=== PATIENT | female | born 1985 | race Caucasian/White ===

== ENCOUNTER 2016-12-27 19:16 | Outpatient (CLI) | payer MEDICAID ==
[~2016-12-27] VITALS: Ht 157.5 cm; Wt 82.0 kg
[~2016-12-27 19:16] MED LIST: FERR-55 PO; PREN1TAB62 PO
[2016-12-27 19:55] VITALS: BP 139/82; PULSE 106; RESP 18; Ht 157.5 cm; Wt 82.0 kg
--- NOTE | 2016-12-27 21:18 | RADRPT ---
PROCEDURE: Obstetrical ultrasound for biophysical profile CLINICAL INDICATION: Biophysical profile. . TECHNIQUE: Obstetrical ultrasound of the uterus for biophysical profile. Transabdominal and transvaginal views are obtained. COMPARISON: 10/04/2016 FINDINGS: Single intrauterine gestation. Presentation: Cephalic. Placenta: Anterior. No evidence of placental abruption. No evidence of placenta previa. Cervix is closed measuring 2.1 cm as visualized transvaginally. breathing movement = 2/2 tone = 2/2 motion = 2/2 KALANI = 2/2 KALANI = 16.9 cm heart rate: 154 beats per minute IMPRESSION: Single intrauterine gestation. Biophysical profile 10/08 RPTAT: AADD .Danny Astudillo MD, MD Date Time Electronically viewed and signed by .Danny Astudillo MD, MD on 12/27/2016 21:17 .B/
[2016-12-27] MEDS ORDERED: LACTATED RINGER'S 1,000 ML IV SCH (21:40)
[2016-12-27 21:51] LABS: BASOPHILS % 0.3 % (0.0-2.0); EOSINOPHILS # 0.2 10^3/ul (0.0-0.5); EOSINOPHILS % 2.8 % (0.0-7.0); HEMATOCRIT 33.5 % (37.0-47.0); HEMOGLOBIN 11.5 g/dl (12.0-16.0); LYMPHOCYTES % 31.1 % (15.0-51.0); MEAN CORPUSCULAR HEMOGLOBIN 27.5 pg (29.0-33.0); MEAN CORPUSCULAR HGB CONC 34.3 g/dl (32.0-37.0); MEAN CORPUSCULAR VOLUME 80.1 fl (82.0-101.0); MEAN PLATELET VOLUME 10.3 fl (7.4-10.4); MONOCYTE # 0.5 10^3/ul (0.3-0.9); MONOCYTES % 7.9 % (0.0-11.0); NEUTROPHIL # 3.7 10^3/ul (1.6-7.5); NEUTROPHILS % 56.7 % (39.0-77.0); PLATELET COUNT 170 10^3/UL (140-415); RED BLOOD COUNT 4.18 10^6/ul (4.20-5.40); RED CELL DISTRIBUTION WIDTH 13.4 % (11.5-14.5); WHITE BLOOD COUNT 6.5 10^3/ul (4.8-10.8)
[2016-12-27 22:08] LABS: INR 0.94; PROTIME 12.6 Sec (12.2-14.2)
[2016-12-27 22:09] LABS: PARTIAL THROMBOPLASTIN TIME 25.8 Sec (25.0-35.0)
[2016-12-27 22:14] LABS: ALBUMIN 4.2 g/dl (3.3-4.9); ALBUMIN/GLOBULIN RATIO 1.35; BILIRUBIN,INDIRECT 0.1 mg/dl (0-1.1); BILIRUBIN,TOTAL 0.1 mg/dl (0.2-1.3); CREATININE 0.61 mg/dl (0.44-1.00); POTASSIUM 3.5 mmol/L (3.5-5.1); TOTAL PROTEIN 7.3 g/dl (6.1-8.1); URIC ACID 4.5 mg/dl (3.1-7.9)
[2016-12-27 22:32] LABS: ADD UMIC YES; UR ASCORBIC ACID NEGATIVE (NEGATIVE); UR BACTERIA FEW /HPF (NONE SEEN); UR BILIRUBIN (Dip) NEGATIVE (NEGATIVE); UR BLOOD (Dip) 1+ mg/dL (NEGATIVE); UR CLARITY SLIGHTLY CLOUDY (CLEAR); UR COLOR YELLOW (YELLOW); UR GLUCOSE (Dip) 1+ mg/dL (NEGATIVE); UR KETONES (Dip) NEGATIVE (NEGATIVE); UR LEUKOCYTE ESTERASE (Dip) TRACE Leu/ul (NEGATIVE); UR NITRITE (Dip) NEGATIVE (NEGATIVE); UR RBC 5 /HPF (0-5); UR SPECIFIC GRAVITY (Dip) 1.008 (1.003-1.030); UR SQUAMOUS EPITHELIAL CELL MODERATE /HPF (FEW); UR TOTAL PROTEIN (Dip) NEGATIVE (NEGATIVE); UR UROBILINOGEN (Dip) NEGATIVE (NEGATIVE)
--- NOTE | 2016-12-27 23:11 | PN ---
Triage Information Date/Time Reason for visit: Weeks of Gestation 33w 6d /Para Objective Vital Signs Date Time Temp Pulse Resp B/P Pulse Ox O2 Delivery O2 Flow Rate FiO2 12/27/16 19:55 98.6 106 18 139/82 Room Air Heart Rate Comments reactive Contractions: >10 Minutes Apart Exam FFN neg Results/Medications Result Diagram: 12/27/16213412/27/162134 Results 24 hrs Laboratory Tests Test 12/27/16 20:08 12/27/16 21:35 Urine Color YELLOW Urine Clarity SLIGHTLY CLOUDY A Urine pH 6.0 Urine Specific [place] 1.008 Urine Ketones NEGATIVE Urine Nitrite NEGATIVE Urine Bilirubin NEGATIVE Urine Urobilinogen NEGATIVE Urine Leukocyte Esterase TRACE A Urine Microscopic RBC 5 Urine Microscopic WBC 3 Urine Squamous Epithelial Cells MODERATE Urine Bacteria FEW A Urine Hemoglobin 1+ H Urine Glucose 1+ H Urine Total Protein NEGATIVE Fibronectin NEGATIVE White Blood Count 6.5 # Red Blood Count 4.18 L Hemoglobin 11.5 L Hematocrit 33.5 L Mean Corpuscular Volume 80.1 L Mean Corpuscular Hemoglobin 27.5 L Mean Corpuscular Hemoglobin Concent 34.3 Red Cell Distribution Width 13.4 Platelet Count 170 Mean Platelet Volume 10.3 # Neutrophils % 56.7 Lymphocytes % 31.1 Monocytes % 7.9 Eosinophils % 2.8 Basophils % 0.3 Nucleated Red Blood Cells % 0.0 Neutrophils # 3.7 Lymphocytes # 2.0 Monocytes # 0.5 Eosinophils # 0.2 Basophils # 0.0 Nucleated Red Blood Cells # 0.0 Prothrombin Time 12.6 Prothrombin Time Ratio 1.0 INR International Normalized Ratio 0.94 Activated Partial Thromboplast Time 25.8 Fibrinogen 431.0 # Sodium Level 140 Potassium Level 3.5 Chloride Level 106 Carbon Dioxide Level 22 Anion Gap 16 Blood Urea Nitrogen 8 Creatinine 0.61 Glucose Level 97 Uric Acid 4.5 Calcium Level 9.0 Total Bilirubin 0.1 L Direct Bilirubin 0.00 Indirect Bilirubin 0.1 Aspartate Amino Transf (AST/SGOT) 20 Alanine Aminotransferase (ALT/SGPT) 29 Alkaline Phosphatase 87 Total Protein 7.3 Albumin 4.2 Globulin 3.10 Albumin/Globulin Ratio 1.35 Medications Current Medications Lactated Ringer's (Lr) 1,000 ml @ 125 mls/hr Q8H IV Last administered on 12/27t 21:35; Admin Dose 125 MLS/HR; Start 12/27/16 at 21:40 Imaging Results CL 2.1cm Disposition: Discharge Assessment/Plan 31 y/o at 33w 6d with elevated BPs, normal labs and UCs, resolved with IVFs , no e/o ptl -discharge home with ptl/preeclampsia precautions -24 hour urine -f/u with OB RALF CISNEROS Dec 27, 2016 23:11
--- NOTE | 2016-12-28 00:36 | TRIAGE ---
OB Triage Datetime Report Generated by CPN: 12/28/2016 00:36 Datetime: 12/27/2016 23:00 Labor Evaluation Frequency: 0 Monitor Mode: External Heart Rate FHR Baseline Rate: 135 FHR Baseline Changes: No Baseline Change Variability: Moderate 6-25 bpm Accelerations: 15X15 Decelerations: None Category: Category I Datetime: 12/27/2016 22:00 Labor Evaluation Frequency: IRREGULAR Monitor Mode: External Duration (sec)2399: 60 Quality: Mild Pattern: Normal: <= 5 Contractions in 10 Minutes Resting Tone [place]: Relaxed Heart Rate FHR Baseline Rate: 135 FHR Baseline Changes: No Baseline Change Variability: Moderate 6-25 bpm Accelerations: 15X15 Decelerations: None Category: Category I Datetime: 12/27/2016 21:00 Labor Evaluation Frequency: IRREGULAR Monitor Mode: External Duration (sec)2399: 60 Quality: Mild Pattern: Normal: <= 5 Contractions in 10 Minutes Resting Tone [place]: Relaxed Heart Rate FHR Baseline Rate: 145 Monitor Mode: External US FHR Baseline Changes: No Baseline Change Variability: Moderate 6-25 bpm Accelerations: 15X15 Decelerations: None Category: Category I Datetime: 12/27/2016 20:29 EGA: 33.6 Time Provider Notified: 12/27/2016 21:00 Provider Notified: DR UAJE Datetime: 12/27/2016 20:07 Vaginal Exam Dilatation (cms): 0.5 Effacement (%): 0 Station: -3 Exam By: Jovi ARCINIEGA RN Vaginal Bleeding: None Cervix, Consistency: Firm Cervix, Position: Posterior Datetime: 12/27/2016 20:00 Labor Evaluation Frequency: IRREGULAR Monitor Mode: External Duration (sec)2399: 60-100 Quality: Mild Pattern: Normal: <= 5 Contractions in 10 Minutes Resting Tone [place]: Relaxed Heart Rate FHR Baseline Rate: 150 Monitor Mode: External US FHR Baseline Changes: No Baseline Change Variability: Moderate 6-25 bpm Accelerations: 15X15 Decelerations: None Category: Category I Datetime: 12/27/2016 19:31 Time of Arrival: 12/27/2016 19:05 Arrived By: Wheelchair Arrived From: Home Chief Complaint: ELEVATED BP'S SENT IN FROM THE OFICE Movement: Present Contractions: Denies/Absent Rupture of Membranes: Denies Vaginal Bleeding: None Vaginal Discharge: Denies Recent Sexual Intercouse: Denies Abdominal Trauma: Not Applicable Patient Complaints: None (Annotations: Data stored by CPN on behalf of user) Time Provider Notified: 12/27/2016 21:00 Provider Notified: DR CISNEROS Initial Plan: CALL TYLER DOE Maternal Assessment Level of Consciousness: Fully Conscious DTR's/Clonus: DTRs 2+; No Clonus Headache: Denies Blurred Vision: No Respiratory Effort: Unlabored; Regular Rhythm; Equal Expansion Breath Sounds, Left: Clear and Equal Breath Sounds, Right: Clear and Equal Nausea/Vomiting: Denies RUQ Epigastric Pain: Denies Lower Extremities Edema: Bilateral Lower Extremities Degree: 1+ Upper Extremities Edema: None Degree: None Facial Edema: None Temperature Route: Oral Fall Risk Assessment History of Falling: (0) No Secondary Diagnosis: (0) No Ambulatory Aid: (0) Bedrest/Nurse Assist IV Therapy: (0) No Gait: (0) Normal/Bedrest/Immobile Mental Status: (0) Oriented to Own Ability Fall Score: 0 Fall Risk Score Definition: No Risk: No action required Monitor Mode: External Monitor Mode: External US Pain Assessment Pain Scale: 0
== END 2016-12-27 23:17 | disposition home or self-care (01) ==
LOC: OBT 19:16 → L-D 19:18 → OBT 23:17
PROVIDERS: ATTEND Obstetrics & Gynecology
DX: O16.3 Unspecified maternal hypertension, third trimester (principal); Z3A.33 33 weeks gestation of pregnancy
CPT/HCPCS: 36415; 76817; 76818; 80053; 81001; 82731; 84560; 85025; 85384; 85610; 85730; 96360; 96361; J7120; Z7500; G0463

== ENCOUNTER 2016-12-29 10:25 | Inpatient (IN) | payer MEDICAID ==
[~2016-12-29] VITALS: Ht 157.5 cm; Wt 81.2 kg
[2016-12-29] MEDS ORDERED: CALC600T24 PO (10:40)
[2016-12-29] MEDS ORDERED: FOLI-49 PO (10:40)
[2016-12-29 10:41] VITALS: BP 135/90; PULSE 90; RESP 18; Ht 157.5 cm; Wt 81.2 kg
--- NOTE | 2016-12-29 11:58 | RADRPT ---
PROCEDURE: Obstetrical ultrasound for biophysical profile CLINICAL INDICATION: Biophysical profile. . TECHNIQUE: Obstetrical ultrasound of the uterus for biophysical profile. Transabdominal views are obtained. COMPARISON: 12/27/2016 FINDINGS: Single intrauterine gestation. Presentation: Cephalic. Placenta: Anterior. No evidence of placental abruption. No evidence of placenta previa. breathing movement = 2/2 tone = 2/2 motion = 2/2 KALANI = 2/2 KALANI = 11.2 cm heart rate: 135 beats per minute IMPRESSION: Single intrauterine gestation. Biophysical profile 10/08 RPTAT: AADD .Danny Astudillo MD, MD Date Time Electronically viewed and signed by .Danny Astudillo MD, on 12/29/2016 11:57 .B/
--- NOTE | 2016-12-29 12:35 | TRIAGE ---
OB Triage Datetime Report Generated by CPN: 12/29/2016 12:35 Datetime: 12/29/2016 10:38 Assessment Type: Triage Level of Consciousness: Fully Conscious DTR's/Clonus: DTRs 2+; No Clonus Headache: Denies Blurred Vision: No Respiratory Effort: Unlabored; Regular Rhythm; Equal Expansion Breath Sounds, Left: Clear and Equal Breath Sounds, Right: Clear and Equal Nausea/Vomiting: Denies RUQ Epigastric Pain: Denies Lower Extremities Edema: None Degree: None Upper Extremities Edema: None Degree: None Facial Edema: None History of Falling: (0) No Secondary Diagnosis: (0) No Ambulatory Aid: (0) Bedrest/Nurse Assist IV Therapy: (0) No Gait: (0) Normal/Bedrest/Immobile Mental Status: (0) Oriented to Own Ability Fall Score: 0 Fall Risk Score Definition: No Risk: No action required Datetime: 12/29/2016 10:31 Time of Arrival: 12/29/2016 10:21 EGA: 34.1 Arrived By: Ambulatory Arrived From: Home Chief Complaint: PT HERE WITH 24 URINE COLLECTION Movement: Present Contractions: Denies/Absent Rupture of Membranes: Denies Vaginal Bleeding: None Vaginal Discharge: Denies Recent Sexual Intercouse: Denies Abdominal Trauma: Not Applicable Patient Complaints: None Time Provider Notified: 12/29/2016 10:21 Provider Notified: SHAMSIAN Initial Plan: BPP/NST/PIH PANEL/ Datetime: 12/29/2016 10:28 Monitor Mode: External Monitor Mode: External US Datetime: 12/27/2016 23:04 Stage of : OB Triage
[2016-12-29] MEDS: BETAMET NA PHOS/AC(6 MG/ML) 5ML INJ IM SCH (13:13)
--- NOTE | 2016-12-29 16:51 | HP ---
Date/Time of Note Date/Time of Note DATE: 12/29/16 TIME: 16:50 OB - History Hx of Present Free Text/Dictation iup 34 weeks ho of HBP pt no symptoms : 5 Para: 2 Care: Good Care Ultrasounds: Normal mid trimester US Past Family/Social History * Past Medical, Surgical, Family and Obstetric Histories reviewed from chart. OB Admission Exam Vital Signs Vital Signs Vital Signs Date Time Temp Pulse Resp B/P Pulse Ox O2 Delivery O2 Flow Rate FiO2 12/29/16 10:41 98.9 90 18 135/90 98 Room Air Physical Exam HEENT: WNL Lungs: Clear Abdomen: WNL Extremities: Normal Reflexes: Normal Cervical Dilatation: None Last 72 hours Lab Results CBC & BMP 12/29/16 11:00 Liver Function Test 12/29/16 11:00 Alanine Aminotransferase (ALT/SGPT) 29 Albumin 4.1 Alkaline Phosphatase 93 Aspartate Amino Transf (AST/SGOT) 20 Direct Bilirubin 0.00 Total Protein 7.1 OB Assessment/Plan Plan: Expectant Management Other plan: at 34 weeks with elevated BP of 130-140/80-90 24 urine protein >700 labs wnl plan admit BMS and perinate consult INGRIS PADILLA MD Dec 29, 2016 16:51
[2016-12-29] MEDS ORDERED: LABETALOL HCL 20MG INJ IV PRN (20:00)
[2016-12-29] MEDS ORDERED: ACETAMINOPHEN 325 MG TAB PO PRN (20:00)
[2016-12-30] MEDS: PRENATAL VITAMIN PO SCH (09:40)
--- NOTE | 2016-12-30 10:46 | PREOPHP ---
DATE OF ADMISSION: 12/29/2016 HISTORY OF PRESENT ILLNESS: Ms. Moriah Alexander is a 31-year-old 5, para 2, EDC 7 intrauterine at 33 weeks and 2 days gestational age. She was admitted yesterday for kennedy vated blood pressures. She denies any headache, nausea, vomiting, shortness of breath, or visual ch anges, epigastric pain. She received 2 doses of steroids for lung maturity. Her 24-hour urin e collection was received to be 776. Currently, her vitals are temperature of 98.9, pulse 90, respi ration 18, blood pressure 135/90. Review of systems also normal. MEDICAL HISTORY: History of -induced hypertension in previous . MEDICATIONS: vitamins. PAST SURGICAL HISTORY: None. OBSTETRIC HISTORY: x2 vaginal deliveries, x2 missed AB. GYNECOLOGIC HISTORY: 12, regular 3 to 4 days. Denies any sexually transmitted diseases. Sexually active with 1 partner. SOCIAL HISTORY: Denies any smoking, drugs or alcohol. FAMILY HISTORY: None. REVIEW OF SYSTEMS: All within normal except history of present illness. PHYSICAL EXAMINATION: HEENT: Within normal. LUNGS: CTA bilateral. CARDIOVASCULAR: S1, S2, regular rhythm. ABDOMEN: Gravid, nontender. Negative CVA bilateral. EXTREMITIES: Negative edema. No calf tenderness. PELVIC: Vaginal exam deferred. ASSESSMENT: A 31-year-old 5, para 2, intrauterine at 33 weeks and 2 days' gestati onal age with preeclampsia without severe features. PLAN: Follow up with perinatology recommendation. Dictated By: JAMARI HYDE/KADI Conf#: [id number] DID#: [id number]
--- NOTE | 2016-12-30 10:46 | PREOPHP ---
DATE OF ADMISSION: 12/29/2016 HISTORY OF PRESENT ILLNESS: Ms. Moriah Alexander is a 31-year-old 5, para 2, EDC 7 intrauterine at 33 weeks and 2 days gestational age. She was admitted yesterday for kennedy vated blood pressures. She denies any headache, nausea, vomiting, shortness of breath, or visual ch anges, epigastric pain. She received 2 doses of steroids for lung maturity. Her 24-hour urin e collection was received to be 776. Currently, her vitals are temperature of 98.9, pulse 90, respi ration 18, blood pressure 135/90. Review of systems also normal. MEDICAL HISTORY: History of -induced hypertension in previous . MEDICATIONS: vitamins. PAST SURGICAL HISTORY: None. OBSTETRIC HISTORY: x2 vaginal deliveries, x2 missed AB. GYNECOLOGIC HISTORY: 12, regular 3 to 4 days. Denies any sexually transmitted diseases. Sexually active with 1 partner. SOCIAL HISTORY: Denies any smoking, drugs or alcohol. FAMILY HISTORY: None. REVIEW OF SYSTEMS: All within normal except history of present illness. PHYSICAL EXAMINATION: HEENT: Within normal. LUNGS: CTA bilateral. CARDIOVASCULAR: S1, S2, regular rhythm. ABDOMEN: Gravid, nontender. Negative CVA bilateral. EXTREMITIES: Negative edema. No calf tenderness. PELVIC: Vaginal exam deferred. ASSESSMENT: A 31-year-old 5, para 2, intrauterine at 33 weeks and 2 days' gestati onal age with preeclampsia without severe features. PLAN: Follow up with perinatology recommendation. Dictated By: JAMARI YHDE/KADI Conf#: [id number] DID#: [id number]
[2016-12-30] MEDS: BETAMET NA PHOS/AC(6 MG/ML) 5ML INJ IM SCH (13:00)
[2016-12-31] MEDS: PRENATAL VITAMIN PO SCH (09:37)
--- NOTE | 2016-12-31 20:58 | QN ---
Documentation Comment Patient was seen and evaluated awake alert oriented 3 denies any headache nausea vomiting shortness of breath visual changes epigastric pain Patient had elevated blood pressure today at 150/84 Her current blood pressure is 146/75 Dr. Bartholomew evaluated today as reported and desires to continue observation in hospital Abdomen soft nontender gravid no epigastric pain Extremity negative edema no calf tenderness Assessment/intrauterine at 33 weeks and 3 day gestational age preeclampsia without severe features Plan continue present management JAMARI MELTON MD Dec 31, 2016 20:58
--- NOTE | 2017-01-01 03:58 | CONS ---
DATE OF ADMISSION: 12/29/2016 DATE OF CONSULTATION: 12/31/2016 HISTORY OF PRESENT ILLNESS: The patient is a 31-year-old, G2, P1 at 33 weeks and I believe 5 days, who presented with elevated blood pressure. At the time of admission, she had only 1 severe range b lood pressure, the rest have been moderate to normal range; however, since yesterday, blood pressure s have increased, but they are still not in severe range. [id number]-[id number] urine is about over 700 grams per protein. AST, ALT and creatinine are normal, so are platelets. Baby, heart tone is reassuring. PHYSICAL EXAMINATION: VITAL SIGNS: Currently, her blood pressure is 144/82. Physical exam deferred. IMPRESSION: Intrauterine with mild preeclampsia, with a history of preeclampsia. Blood p ressures since yesterday have decreased, but they are still not in the severe range. RECOMMENDATIONS: In-house management for the next 24 hours if blood pressures remain stable and the y do not increase. The patient can be discharged home. Her 's sister is apparently at home and can take of the kids. She needs to have appointment with testing twice weekly and lab s once weekly, and delivery at 37 weeks is recommended unless severe preeclampsia develops. She als o received betamethasone. Dictated By: WALTER VALLADARES/KADI Conf#: [id number] DID#: [id number] CC: JAMARI MELTON MD;*EndCC*
--- NOTE | 2017-01-01 08:26 | RADRPT ---
PROCEDURE: Obstetrical ultrasound. CLINICAL INDICATION: , evaluation. Pelvic pain. TECHNIQUE: Transabdominal sonographic images of the uterus obtained after first trimester , greater than 14 weeks gestation. Single intrauterine gestation present. COMPARISON: 12/29/2016 FINDINGS: Single intrauterine gestation. There is a cephalic presentation. Measurements were made in order to determine age. The results are as follows: BPD = 33 weeks 2 day(s) HC = 32 weeks 6 day(s) AC = 33 weeks 5 day(s) FL = 32 weeks 3 day(s) KLAANI = not measured. Heart rate = 156 beats per minute The placenta is anterior. There is no evidence for an abruption or placenta previa. Ovaries are not visualized. IMPRESSION: Single intrauterine gestation of approximately 33 weeks 1 days by ultrasound criteria. [place] estimated weight = 2145 g; 43 percentile for gestational age of 33 weeks 1 days. RPTAT: AADD .Danny Astudillo MD, MD Date Time Electronically viewed and signed by .Danny Astudillo MD, on 01/01/2017 08:26 .B/
--- NOTE | 2017-01-01 08:26 | RADRPT ---
PROCEDURE: Obstetrical ultrasound. CLINICAL INDICATION: , evaluation. Pelvic pain. TECHNIQUE: Transabdominal sonographic images of the uterus obtained after first trimester , greater than 14 weeks gestation. Single intrauterine gestation present. COMPARISON: 12/29/2016 FINDINGS: Single intrauterine gestation. There is a cephalic presentation. Measurements were made in order to determine age. The results are as follows: BPD = 33 weeks 2 day(s) HC = 32 weeks 6 day(s) AC = 33 weeks 5 day(s) FL = 32 weeks 3 day(s) KALANI = not measured. Heart rate = 156 beats per minute The placenta is anterior. There is no evidence for an abruption or placenta previa. Ovaries are not visualized. IMPRESSION: Single intrauterine gestation of approximately 33 weeks 1 days by ultrasound criteria. [place] estimated weight = 2145 g; 43 percentile for gestational age of 33 weeks 1 days. RPTAT: AADD .Danny Astudillo MD, MD Date Time Electronically viewed and signed by .Danny Astudillo MD, on 01/01/2017 08:26 .B/
--- NOTE | 2017-01-01 08:43 | QN ---
Documentation Comment Patient seen and evaluated awake alert oriented 3 denies headache nausea vomiting shortness of breath visual changes Vital signs stable afebrile Abdomen soft soft gravid nontender extremity negative edema no calf tenderness Assessment interim at 33 weeks and 4 day gestational age preeclampsia with no severe features Plan continue present management JAMARI MELTON MD Jan 01, 2017 08:43
[2017-01-01] MEDS: PRENATAL VITAMIN PO SCH (09:29)
[2017-01-02] MEDS: PRENATAL VITAMIN PO SCH (08:55)
[2017-01-02] MEDS ORDERED: LABETALOL 100 MG TAB PO SCH (09:00)
--- NOTE | 2017-01-02 15:49 | PD.PPDC ---
HISTORICAL MANUSCRIPTS CURATOR Discharge Instruction Condition Patient Condition: Fair Diet Diet: Resume Regular Diet Activity/Restrictions Activity: Normal Activity May Shower Follow-up Follow-up with Physician: 1, Day/Days Return to clinic for MATRIX PLATER Instructions: Fever greater than 101 Chills Worsening abdominal pain Excessive Vaginal Bleeding More than 2 pads per hour Unable to tolerate diet OB Instructions: Breast Tenderness Depression Blurried Vision Headache Comment: strict preeclamptic precautions schedule for nst/bpp 2x weekly continue home blood pressure monitoring f/u office this friday consider to deliver at 37 ga. JAMARI MELTON MD Jan 02, 2017 15:48
--- NOTE | 2017-01-02 15:49 | PD.PPDC ---
SIX PACK LOADER OPERATOR Discharge Instruction Condition Patient Condition: Fair Diet Diet: Resume Regular Diet Activity/Restrictions Activity: Normal Activity May Shower Follow-up Follow-up with Physician: 1, Day/Days Return to clinic for SHARED SERVICES MANAGER Instructions: Fever greater than 101 Chills Worsening abdominal pain Excessive Vaginal Bleeding More than 2 pads per hour Unable to tolerate diet OB Instructions: Breast Tenderness Depression Blurried Vision Headache Comment: strict preeclamptic precautions schedule for nst/bpp 2x weekly continue home blood pressure monitoring f/u office this friday consider to deliver at 37 ga. JAMARI MELTON MD Jan 02, 2017 15:48
--- NOTE | 2017-01-02 15:49 | PD.PPDC ---
POWER GRADER OPERATOR Discharge Instruction Condition Patient Condition: Fair Diet Diet: Resume Regular Diet Activity/Restrictions Activity: Normal Activity May Shower Follow-up Follow-up with Physician: 1, Day/Days Return to clinic for INTERFACE CONTROL OFFICER Instructions: Fever greater than 101 Chills Worsening abdominal pain Excessive Vaginal Bleeding More than 2 pads per hour Unable to tolerate diet OB Instructions: Breast Tenderness Depression Blurried Vision Headache Comment: strict preeclamptic precautions schedule for nst/bpp 2x weekly continue home blood pressure monitoring f/u office this friday consider to deliver at 37 ga. JAMARI MELTON MD Jan 02, 2017 15:48
--- NOTE | 2017-01-03 04:08 | DS ---
DATE OF ADMISSION: 12/29/2016 DATE OF DISCHARGE: 01/02/2017 PRIMARY DIAGNOSIS: A 31-year-old 5, para 2, intrauterine at 33 weeks gestational age, preeclampsia without severe features, undelivered. PROCEDURE: None. CONDITION ON DISCHARGE: Stable. ACTIVITY: As tolerates. DIET: Regular. MEDICATIONS ON DISCHARGE: Labetalol 100 mg p.o. every day. DISCHARGE SUMMARY: Ms. Alexander is a 31-year-old 5, para 2, intrauterine at 33 weeks gestational age, was admitted on 12/29/2016, secondary to elevated blood pressures. She had a 24-hour urine collection which was approximately 700 mg. She received IV hydration and steroid tr eatment for lung maturity while she was in the hospital. Her blood pressures have been fairly within normal limits; however, Dr. Franco recommended labetalol 100 mg every day and after discussin g her evaluation, Dr. Franco agrees to discharge home with strict preeclamptic precautions and nonstr ess test twice weekly and also deliver approximately 37 weeks gestational age. I spoke with the rayna martinez in person and she agrees with the following plan. All questions were answered in detail. Dictated By: JAMARI HYDE/KADI Conf#: [id number] DID#: [id number]
== END 2017-01-02 17:30 | disposition home or self-care (01) | DRG 781 ==
LOC: L-D 10:25 → OBT 10:25 → OBG 12:25 → OBT 12:33
PROVIDERS: ADMIT Obstetrics & Gynecology; ATTEND Obstetrics & Gynecology
DX: O14.93 Unspecified pre-eclampsia, third trimester (principal); Z3A.33 33 weeks gestation of pregnancy
CPT/HCPCS: 36415; 76816; 76818; 80053; 81001; 81003; 82575; 84156; 84560; 85025; 85384; 85610; 85730; G0463; J0702

== ENCOUNTER 2017-01-04 17:54 | Outpatient (CLI) | payer MEDICAID ==
[~2017-01-04] VITALS: Ht 157.5 cm; Wt 81.8 kg
[~2017-01-04 17:54] MED LIST changes: +CALC600T24 PO; +FOLI-49 PO
[2017-01-04 18:13] VITALS: Ht 157.5 cm; Wt 81.8 kg
--- NOTE | 2017-01-04 19:47 | RADRPT ---
PROCEDURE: US OB biophysical profile. CLINICAL INDICATION: Decreased movements TECHNIQUE: Multiple sonographic images of the pelvis were obtained. The images were reviewed on a PACS workstation. COMPARISON: 12/29/2016 FINDINGS: There is a viable intrauterine gestation. There is a normal amount of amniotic fluid with an KALANI = 14.1 cm. Cardiac activity is present with 157 beats per minute. The placenta is anterior. No evidence of placenta previa or abruption. Biophysical profile: movement 2/2 tone 2/2. breathing 2/2 KALANI 2/2 Total 10/08 IMPRESSION: Normal biophysical profile. Estimated gestational age: 33 weeks and 4 days RPTAT:AAJJ Physician Maverick Date Time Electronically viewed and signed by Physician Maverick on 01/04/2017 19:46 /
[2017-01-04 19:48] LABS: BASOPHILS % 0.4 % (0.0-2.0); EOSINOPHILS # 0.1 10^3/ul (0.0-0.5); EOSINOPHILS % 1.3 % (0.0-7.0); HEMOGLOBIN 11.2 g/dl (12.0-16.0); LYMPHOCYTES # 2.6 10^3/ul (0.8-2.9); LYMPHOCYTES % 27.9 % (15.0-51.0); MEAN CORPUSCULAR HEMOGLOBIN 26.7 pg (29.0-33.0); MEAN CORPUSCULAR HGB CONC 32.9 g/dl (32.0-37.0); MEAN CORPUSCULAR VOLUME 81.1 fl (82.0-101.0); MEAN PLATELET VOLUME 10.3 fl (7.4-10.4); MONOCYTE # 0.5 10^3/ul (0.3-0.9); MONOCYTES % 5.9 % (0.0-11.0); NEUTROPHIL # 5.5 10^3/ul (1.6-7.5); NEUTROPHILS % 60.2 % (39.0-77.0); PLATELET COUNT 180 10^3/UL (140-415); RED BLOOD COUNT 4.19 10^6/ul (4.20-5.40); WHITE BLOOD COUNT 9.2 10^3/ul (4.8-10.8)
[2017-01-04 19:55] LABS: ADD UMIC YES; UR ASCORBIC ACID NEGATIVE (NEGATIVE); UR BACTERIA FEW /HPF (NONE SEEN); UR BILIRUBIN (Dip) NEGATIVE (NEGATIVE); UR BLOOD (Dip) 1+ mg/dL (NEGATIVE); UR CLARITY CLEAR (CLEAR); UR COLOR STRAW (YELLOW); UR GLUCOSE (Dip) NEGATIVE (NEGATIVE); UR KETONES (Dip) NEGATIVE (NEGATIVE); UR LEUKOCYTE ESTERASE (Dip) NEGATIVE Leu/ul (NEGATIVE); UR NITRITE (Dip) NEGATIVE (NEGATIVE); UR RBC 2 /HPF (0-5); UR SPECIFIC GRAVITY (Dip) 1.005 (1.003-1.030); UR SQUAMOUS EPITHELIAL CELL FEW /HPF (FEW); UR TOTAL PROTEIN (Dip) NEGATIVE (NEGATIVE); UR UROBILINOGEN (Dip) NEGATIVE (NEGATIVE)
[2017-01-04 20:14] LABS: ALBUMIN 3.6 g/dl (3.3-4.9); ALBUMIN/GLOBULIN RATIO 1.02; CALCIUM 9.4 mg/dl (8.4-10.2); CREATININE 0.45 mg/dl (0.44-1.00); POTASSIUM 3.8 mmol/L (3.5-5.1); TOTAL PROTEIN 7.1 g/dl (6.1-8.1); URIC ACID 3.8 mg/dl (3.1-7.9)
[2017-01-04 20:15] LABS: INR 0.97; PROTIME 12.9 Sec (12.2-14.2)
[2017-01-04] MEDS ORDERED: LABETALOL 100 MG TAB PO ONE (20:30)
[2017-01-04 20:40] LABS: PARTIAL THROMBOPLASTIN TIME 25.9 Sec (25.0-35.0)
--- NOTE | 2017-01-04 21:32 | PN ---
Triage Information Date/Time Jan 04, 2017 Reason for visit: Preeclampsia Weeks of Gestation 34w /Para 5/2 Diabetes: none Hypertention: induced Additional information Pt here for f/u with NST/BPP of her PIH. F/U is 2x/week. Pt was supposed to fill a Rx for Labetalol 100 once/day and brought the Rx to the pharmacy but then was unable to fill as the pharmacy says they lost it. PMHx: PIH with her other 2 pregnancies. POBHx: x 2. PSHX: none. NKDA. Objective Vital Signs Date Time Temp Pulse Resp B/P Pulse Ox O2 Delivery O2 Flow Rate FiO2 01/04/17 18:13 98.3 Heart Rate: 150's Heart Rate Comments Accels to 170 bpm. No decels. Contractions: None Results/Medications Result Diagram: 01/04/17184901/04/171849 Results 24 hrs Laboratory Tests Test 01/04/17 18:50 White Blood Count 9.2 Red Blood Count 4.19 L Hemoglobin 11.2 L Hematocrit 34.0 L Mean Corpuscular Volume 81.1 L Mean Corpuscular Hemoglobin 26.7 L Mean Corpuscular Hemoglobin Concent 32.9 Red Cell Distribution Width 14.0 Platelet Count 180 Mean Platelet Volume 10.3 Neutrophils % 60.2 Lymphocytes % 27.9 Monocytes % 5.9 Eosinophils % 1.3 Basophils % 0.4 Nucleated Red Blood Cells % 0.0 Neutrophils # 5.5 Lymphocytes # 2.6 Monocytes # 0.5 Eosinophils # 0.1 Basophils # 0.0 Nucleated Red Blood Cells # 0.0 Prothrombin Time 12.9 Prothrombin Time Ratio 1.0 INR International Normalized Ratio 0.97 Activated Partial Thromboplast Time 25.9 Urine Color STRAW Urine Clarity CLEAR Urine pH 7.0 Urine Specific [place] 1.005 Urine Ketones NEGATIVE Urine Nitrite NEGATIVE Urine Bilirubin NEGATIVE Urine Urobilinogen NEGATIVE Urine Leukocyte Esterase NEGATIVE Urine Microscopic RBC 2 Urine Microscopic WBC 1 Urine Squamous Epithelial Cells FEW Urine Bacteria FEW A Urine Hemoglobin 1+ H Urine Glucose NEGATIVE Urine Total Protein NEGATIVE Sodium Level 137 Potassium Level 3.8 Chloride Level 106 Carbon Dioxide Level 22 Anion Gap 13 Blood Urea Nitrogen 10 Creatinine 0.45 Glucose Level 110 Uric Acid 3.8 Calcium Level 9.4 Total Bilirubin 0.0 L Direct Bilirubin 0.00 Indirect Bilirubin 0.0 Aspartate Amino Transf (AST/SGOT) 15 Alanine Aminotransferase (ALT/SGPT) 25 Alkaline Phosphatase 102 Total Protein 7.1 Albumin 3.6 Globulin 3.50 H Albumin/Globulin Ratio 1.02 Imaging Results BPP 10/08. KALANI 14.1 cm. Disposition: Discharge Assessment/Plan A: IUP at 34 weeks. Mild PIH. P: D/C home. F/U her 2x/week for NST/BPP. Rx Labetalol 100 mg p.o. q day #30. ARMIDA DOMÍNGUEZ MD Jan 04, 2017 21:32
== END 2017-01-04 21:31 | disposition home or self-care (01) ==
LOC: OBT 17:54 → L-D 17:54 → OBT 21:31
PROVIDERS: ATTEND Obstetrics & Gynecology
DX: O14.93 Unspecified pre-eclampsia, third trimester (principal); Z3A.34 34 weeks gestation of pregnancy
CPT/HCPCS: 76818; 80053; 81001; 84560; 85025; 85610; 85730; Z7610; 36415; G0463

== ENCOUNTER 2017-01-07 17:52 | Outpatient (CLI) | payer MEDICAID ==
[~2017-01-07] VITALS: Ht 157.5 cm; Wt 82.0 kg
[2017-01-07] MEDS ORDERED: LABE100T3 PO (18:07)
[2017-01-07 18:08] VITALS: BP 152/95; PULSE 99; RESP 18; Ht 157.5 cm; Wt 82.0 kg
[2017-01-07] MEDS ORDERED: LACTATED RINGER'S 1,000 ML IV ONE (19:00)
--- NOTE | 2017-01-07 19:19 | RADRPT ---
PROCEDURE: US OB biophysical profile. CLINICAL INDICATION: Decreased movements TECHNIQUE: Multiple sonographic images of the pelvis were obtained. The images were reviewed on a [employer] workstation. COMPARISON: 01/04/2017 and 12/29/2016 FINDINGS: There is a viable intrauterine gestation. There is a normal amount of amniotic fluid with an KALANI = 13.5 cm. Cardiac activity is present with 159 beats per minute. The placenta is anterior. No evidence of placenta previa or abruption. Biophysical profile: movement 2/2 tone 2/2. breathing 2/2 KALANI 2/2 Total 10/08 IMPRESSION: Normal biophysical profile. Estimated gestational age: 34 weeks and 0 days RPTAT:AAJJ Physician Maverick Date Time Electronically viewed and signed by Physician Maverick on 01/07/2017 19:19 /
--- NOTE | 2017-01-07 19:19 | RADRPT ---
PROCEDURE: US OB biophysical profile. CLINICAL INDICATION: Decreased movements TECHNIQUE: Multiple sonographic images of the pelvis were obtained. The images were reviewed on a [employer] workstation. COMPARISON: 01/04/2017 and 12/29/2016 FINDINGS: There is a viable intrauterine gestation. There is a normal amount of amniotic fluid with an KALANI = 13.5 cm. Cardiac activity is present with 159 beats per minute. The placenta is anterior. No evidence of placenta previa or abruption. Biophysical profile: movement 2/2 tone 2/2. breathing 2/2 KALANI 2/2 Total 10/08 IMPRESSION: Normal biophysical profile. Estimated gestational age: 34 weeks and 0 days RPTAT:AAJJ Physician Maverick Date Time Electronically viewed and signed by Physician Maverick on 01/07/2017 19:19 /
--- NOTE | 2017-01-07 21:12 | PN ---
Triage Information Date/Time 01/07/1709/16/2099 Reason for visit: high blood pressure Weeks of Gestation 34w3d /Para A2(sab) Diabetes: none Hypertention: induced Additional information 12/29/16 and 12/30/16 had x2 bmz for preparation for poss early delivery due to PIH? placed on labetalol 100mg daily by perinatalogist again intial BP was 152/95 but serial bp measurement was lower 130's/80's PIH lab ok urine protein neg Objective Vital Signs Date Time Temp Pulse Resp B/P Pulse Ox O2 Delivery O2 Flow Rate FiO2 01/07/17 18:08 99.1 99 18 152/95 99 Room Air Heart Rate: 150's Contractions: None Exam neg for pretibial edema no generalized edema Results/Medications Result Diagram: 01/07/17184401/07/171844 Results 24 hrs Laboratory Tests Test 01/07/17 18:00 01/07/17 18:45 Urine Color COLORLESS Urine Clarity CLEAR Urine pH 7.0 Urine Specific [place] 1.002 L Urine Ketones NEGATIVE Urine Nitrite NEGATIVE Urine Bilirubin NEGATIVE Urine Urobilinogen NEGATIVE Urine Leukocyte Esterase NEGATIVE Urine Microscopic RBC 0 Urine Microscopic WBC 1 Urine Bacteria FEW A Urine Hemoglobin 2+ H Urine Glucose NEGATIVE Urine Total Protein NEGATIVE White Blood Count 7.4 Red Blood Count 4.10 L Hemoglobin 11.3 L Hematocrit 32.9 L Mean Corpuscular Volume 80.2 L Mean Corpuscular Hemoglobin 27.6 L Mean Corpuscular Hemoglobin Concent 34.3 Red Cell Distribution Width 13.4 Platelet Count 174 Mean Platelet Volume 10.4 Neutrophils % 56.9 Lymphocytes % 30.3 Monocytes % 9.4 Eosinophils % 1.5 Basophils % 0.5 Nucleated Red Blood Cells % 0.0 Neutrophils # 4.2 Lymphocytes # 2.2 Monocytes # 0.7 Eosinophils # 0.1 Basophils # 0.0 Nucleated Red Blood Cells # 0.0 Prothrombin Time 12.3 Prothrombin Time Ratio 1.0 INR International Normalized Ratio 0.91 Activated Partial Thromboplast Time 25.2 Fibrinogen 461.0 # Sodium Level 138 Potassium Level 4.0 Chloride Level 104 Carbon Dioxide Level 23 Anion Gap 15 Blood Urea Nitrogen 8 Creatinine 0.47 Glucose Level 75 Uric Acid 4.1 Calcium Level 9.4 Total Bilirubin 0.2 Direct Bilirubin 0.00 Indirect Bilirubin 0.2 Aspartate Amino Transf (AST/SGOT) 14 L Alanine Aminotransferase (ALT/SGPT) 25 Alkaline Phosphatase 97 Total Protein 7.0 Albumin 3.8 Globulin 3.20 Albumin/Globulin Ratio 1.18 Medications labetalol 100mg daily Imaging Results BPP 10/08 KALANI 13.5 Disposition: Discharge Assessment/Plan IUP 34w3d PIH/ HTN PLAN discharge home with Biwk[facility] APT here at triage including PIH lab STEVE BEE MD Jan 07, 2017 21:11
== END 2017-01-07 20:25 | disposition home or self-care (01) ==
LOC: OBT 17:52 → L-D 17:53 → OBT 20:25
PROVIDERS: ATTEND Obstetrics & Gynecology
DX: O13.3 Gestational [pregnancy-induced] hypertension without significant proteinuria, third trimester (principal); Z3A.34 34 weeks gestation of pregnancy
CPT/HCPCS: 36415; 76818; 80053; 81001; 84560; 85025; 85384; 85610; 85730; 96360; J7120; Z7500; G0463

== ENCOUNTER 2017-01-13 18:04 | Outpatient (CLI) | payer MEDICAID ==
[~2017-01-13] VITALS: Ht 157.5 cm; Wt 82.7 kg
[~2017-01-13 18:04] MED LIST changes: +LABE100T3 PO
[2017-01-13 18:07] VITALS: Ht 157.5 cm; Wt 82.7 kg
[2017-01-13 18:08] VITALS: BP 156/94
--- NOTE | 2017-01-13 18:48 | RADRPT ---
PROCEDURE: US OB biophysical profile. CLINICAL INDICATION: evaluation, elevated blood pressure TECHNIQUE: Multiple sonographic images of the pelvis were obtained. The images were reviewed on a PACS workstation. COMPARISON: No prior studies are available for comparison. FINDINGS: There is a single viable intrauterine gestation. Cardiac activity is present with 168 beats per min [place]. There is a vertex presentation. The placenta is anterior. There is no evidence of placental abruption. There is a normal amount of amniotic fluid with an KALANI = 12.2 cm. Biophysical profile: movement 2/2 tone 2/2. breathing 2/2 KALANI 2/2 Total 10/08 RPTAT: AA . IMPRESSION: Normal biophysical profile. Physician Ana Date Time Electronically viewed and signed by Physician Ana on 01/13/2017 18:48 RA/
[2017-01-13 19:01] LABS: BASOPHILS % 0.3 % (0.0-2.0); EOSINOPHILS # 0.1 10^3/ul (0.0-0.5); EOSINOPHILS % 1.5 % (0.0-7.0); HEMATOCRIT 32.3 % (37.0-47.0); LYMPHOCYTES # 1.9 10^3/ul (0.8-2.9); LYMPHOCYTES % 27.9 % (15.0-51.0); MEAN CORPUSCULAR HEMOGLOBIN 27.4 pg (29.0-33.0); MEAN CORPUSCULAR HGB CONC 34.1 g/dl (32.0-37.0); MEAN CORPUSCULAR VOLUME 80.3 fl (82.0-101.0); MEAN PLATELET VOLUME 10.5 fl (7.4-10.4); MONOCYTE # 0.7 10^3/ul (0.3-0.9); MONOCYTES % 10.5 % (0.0-11.0); NEUTROPHILS % 58.9 % (39.0-77.0); PLATELET COUNT 149 10^3/UL (140-415); RED BLOOD COUNT 4.02 10^6/ul (4.20-5.40); RED CELL DISTRIBUTION WIDTH 13.5 % (11.5-14.5); WHITE BLOOD COUNT 6.7 10^3/ul (4.8-10.8)
--- NOTE | 2017-01-13 19:14 | RADRPT ---
PROCEDURE: US OB. CLINICAL INDICATION: Uncertain size and dates. TECHNIQUE: Multiple sonographic images of the uterus were obtained. The images were revi ewed on a PACS workstation. COMPARISON: No prior studies are available for comparison. FINDINGS: There is a single live intrauterine gestation. heart rate is 152 beats per minute. Measurements were made in order to determine age. The results are as follows: BPD = 8.47 cm. HC = 30.79 cm. AC = 31.39 cm. FL = 6.91 cm. Estimated weight is 2598 +/- 390 grams. LMP growth percentile is 43 %. Menstrual age by ultrasound dates is 34 weeks 6 days. The estimated date of delivery is 02/18/2017. Position is cephalic and placenta is anterior grade II. There is no evidence for an abruption or [place] previa. IMPRESSION: 1. Single live intrauterine gestation of 34 weeks 6 days menstrual age by ultrasound dates. 2. The estimated date of delivery is 02/18/2017. RPTAT: QQ .Viktor Rosales MD, Date Time Electronically viewed and signed by .Viktor Rosales MD, on 01/13/2017 19:13 .R/
[2017-01-13 19:16] LABS: INR 0.95; PROTIME 12.7 Sec (12.2-14.2)
[2017-01-13 19:17] LABS: PARTIAL THROMBOPLASTIN TIME 25.7 Sec (25.0-35.0)
[2017-01-13 19:20] LABS: ALBUMIN 3.8 g/dl (3.3-4.9); ALBUMIN/GLOBULIN RATIO 1.18; BILIRUBIN,INDIRECT 0.1 mg/dl (0-1.1); BILIRUBIN,TOTAL 0.1 mg/dl (0.2-1.3); CREATININE 0.56 mg/dl (0.44-1.00); POTASSIUM 3.6 mmol/L (3.5-5.1); URIC ACID 4.4 mg/dl (3.1-7.9)
[2017-01-13 19:43] LABS: ADD UMIC YES; UR ASCORBIC ACID NEGATIVE (NEGATIVE); UR BILIRUBIN (Dip) NEGATIVE (NEGATIVE); UR BLOOD (Dip) 1+ mg/dL (NEGATIVE); UR CLARITY CLEAR (CLEAR); UR COLOR STRAW (YELLOW); UR GLUCOSE (Dip) NEGATIVE (NEGATIVE); UR KETONES (Dip) NEGATIVE (NEGATIVE); UR LEUKOCYTE ESTERASE (Dip) NEGATIVE Leu/ul (NEGATIVE); UR NITRITE (Dip) NEGATIVE (NEGATIVE); UR RBC 1 /HPF (0-5); UR SPECIFIC GRAVITY (Dip) 1.004 (1.003-1.030); UR TOTAL PROTEIN (Dip) NEGATIVE (NEGATIVE); UR UROBILINOGEN (Dip) NEGATIVE (NEGATIVE)
[2017-01-13] MEDS ORDERED: LACTATED RINGER'S 1,000 ML IV SCH (21:16)
[2017-01-13] MEDS ORDERED: LABETALOL 100 MG TAB PO SCH (22:00)
--- NOTE | 2017-01-13 23:18 | PN ---
Triage Information Date/Time Reason for visit: Weeks of Gestation 35 2/7 wks /Para [id number] Diabetes: none Hypertention: induced Additional information 31 Year-old with SIUP at 35 2/7 weeks presents NST and BPP for GHTN. She was admitted on 12/29/16 for close monitoring and discharged home on labetalol 100 mg bid. Labs at that time was nml except 24 hUP of 776. She has been receiving her care with Dr. Montaño. She states good movement. She denies nausea, vomiting, shortness of breath, chest pain, contractions, headache, visual changes, vaginal bleeding or LOF. Objective Vital Signs Date Time Temp Pulse Resp B/P Pulse Ox O2 Delivery O2 Flow Rate FiO2 01/13/17 18:08 98.0 156/94 Room Air Heart Rate: 140's Contractions: None (NST, BPP) Exam General: Patient appears well, alert and oriented, NAD, appropriate mood and affect ABD: gravid, soft, non-tender. Back: No CVA tenderness (B/L) LE: No clubbing, cyanosis, edema, thigh or calf tenderness bilaterally FHT: 140 bpm , moderate variability with acceleration, no deceleration-category I Contractions: None Results/Medications Result Diagram: 01/13/17183901/13/17 184 Results 24 hrs Laboratory Tests Test 01/13/17 18:40 01/13/17 19:14 White Blood Count 6.7 Red Blood Count 4.02 L Hemoglobin 11.0 L Hematocrit 32.3 L Mean Corpuscular Volume 80.3 L Mean Corpuscular Hemoglobin 27.4 L Mean Corpuscular Hemoglobin Concent 34.1 Red Cell Distribution Width 13.5 Platelet Count 149 Mean Platelet Volume 10.5 H Neutrophils % 58.9 Lymphocytes % 27.9 Monocytes % 10.5 Eosinophils % 1.5 Basophils % 0.3 Nucleated Red Blood Cells % 0.0 Neutrophils # 4.0 Lymphocytes # 1.9 Monocytes # 0.7 Eosinophils # 0.1 Basophils # 0.0 Nucleated Red Blood Cells # 0.0 Prothrombin Time 12.7 Prothrombin Time Ratio 1.0 INR International Normalized Ratio 0.95 Activated Partial Thromboplast Time 25.7 Fibrinogen 417.0 # Sodium Level 139 Potassium Level 3.6 Chloride Level 108 Carbon Dioxide Level 21 Anion Gap 14 Blood Urea Nitrogen 9 Creatinine 0.56 Glucose Level 95 Uric Acid 4.4 Calcium Level 9.0 Total Bilirubin 0.1 L Direct Bilirubin 0.00 Indirect Bilirubin 0.1 Aspartate Amino Transf (AST/SGOT) 15 Alanine Aminotransferase (ALT/SGPT) 24 Alkaline Phosphatase 97 Total Protein 7.0 Albumin 3.8 Globulin 3.20 Albumin/Globulin Ratio 1.18 Urine Color STRAW Urine Clarity CLEAR Urine pH 7.0 Urine Specific [place] 1.004 Urine Ketones NEGATIVE Urine Nitrite NEGATIVE Urine Bilirubin NEGATIVE Urine Urobilinogen NEGATIVE Urine Leukocyte Esterase NEGATIVE Urine Microscopic RBC 1 Urine Microscopic WBC 1 Urine Hemoglobin 1+ H Urine Glucose NEGATIVE Urine Total Protein NEGATIVE Assessment/Plan 31 Year-old with SIUP at 35 2/7 weeks with preeclampsia. Her BP on arrival was 170/101, repeat one was 156/94. Rest of her BP during traige observation was wnl. Labs nml, us performed and discussed with pt. However due to significant elevated BP on admission, recommend admitting in hospital for close follow up and repeat 24 hUP. She signed AMA and left the hospital. I have discussed risk of seizure, liver and renal issues, brain edema or hemorrhage, blindness, placenta abruption, . She expressed understnding of all risks and woould like to go home. She will go to [facility] tomorrow to check her BP. Reactive NST and BPP of 10/10 - FHR: No sign of metabolic acidosis- Category I. Symptoms and sign of labor, preeclampsia, kick count discussed with patient, she voiced understanding. All of her questions answered. LEVON BOOTHE Jan 13, 2017 23:16
--- NOTE | 2017-01-14 01:48 | TRIAGE ---
OB Triage Datetime Report Generated by CPN: 01/14/2017 01:48 Datetime: 01/13/2017 21:26 Stage of : OB Triage Datetime: 01/13/2017 21:00 Labor Evaluation Frequency: 0 Monitor Mode: External Heart Rate FHR Baseline Rate: 150 Monitor Mode: External US FHR Baseline Changes: No Baseline Change Variability: Moderate 6-25 bpm Accelerations: 15X15 Decelerations: None Category: Category I Pain Assessment Pain Scale: 0 Pain Presence: None/Denies Datetime: 01/13/2017 20:00 Labor Evaluation Frequency: 0 Monitor Mode: External Heart Rate FHR Baseline Rate: 145 Monitor Mode: External US FHR Baseline Changes: No Baseline Change Variability: Moderate 6-25 bpm Accelerations: 15X15 Decelerations: None Category: Category I Datetime: 01/13/2017 19:15 Stage of : OB Triage Maternal Assessment Level of Consciousness: Fully Conscious DTR's/Clonus: DTRs 2+; No Clonus Headache: Denies Breath Sounds, Left: Clear and Equal Breath Sounds, Right: Clear and Equal Nausea/Vomiting: Denies RUQ Epigastric Pain: Denies Monitor Mode: External Monitor Mode: External US Pain Assessment Pain Scale: 0 Pain Presence: None/Denies Pain Type: N/A Datetime: 01/13/2017 18:58 Comments: UP TO BR Datetime: 01/13/2017 18:26 Time Provider Notified: 01/13/2017 18:27 Datetime: 01/13/2017 18:19 Comments: US AT BEDSIDE Datetime: 01/13/2017 18:13 Stage of : OB Triage Assessment Type: Triage Maternal Assessment Level of Consciousness: Fully Conscious DTR's/Clonus: DTRs 2+; No Clonus Headache: Denies Blurred Vision: No Respiratory Effort: Unlabored; Regular Rhythm; Equal Expansion Breath Sounds, Left: Clear and Equal Breath Sounds, Right: Clear and Equal Nausea/Vomiting: Denies RUQ Epigastric Pain: Denies Lower Extremities Edema: None Degree: None Upper Extremities Edema: None Degree: None Facial Edema: None Temperature Route: Axillary Fall Risk Assessment History of Falling: (0) No Secondary Diagnosis: (0) No Ambulatory Aid: (0) Bedrest/Nurse Assist IV Therapy: (0) No Gait: (0) Normal/Bedrest/Immobile Mental Status: (0) Oriented to Own Ability Fall Score: 0 Fall Risk Score Definition: No Risk: No action required Labor Evaluation Frequency: INITITIAL PLACEMENT Monitor Mode: External Heart Rate FHR Baseline Rate: INITIAL PLACEMENT Monitor Mode: External US Pain Assessment Pain Scale: 0 Pain Presence: None/Denies Pain Type: N/A Datetime: 01/13/2017 18:11 Arrived By: Ambulatory Arrived From: Home Chief Complaint: HERE FOR NST/ BPP FOR ELEVATED BP Movement: Present Contractions: Denies/Absent Rupture of Membranes: Denies Vaginal Bleeding: None Vaginal Discharge: Denies Recent Sexual Intercouse: Denies Abdominal Trauma: Not Applicable Patient Complaints: None Time Provider Notified: 01/13/2017 18:26 Provider Notified: DR. PETERSON Initial Plan: EFMX2, NST BPP Datetime: 01/07/2017 18:12 EGA: 34.3 Datetime: 01/07/2017 18:03 EGA: 34.3 Datetime: 01/04/2017 18:19 EGA: 34.0 Datetime: 01/04/2017 18:06 Fall Score: 0 Fall Risk Score Definition: No Risk: No action required Datetime: 01/04/2017 18:04 EGA: 34.0 Datetime: 01/02/2017 08:30 Fall Score: 0 Fall Risk Score Definition: No Risk: No action required Datetime: 01/01/2017 08:20 Fall Score: 0 Fall Risk Score Definition: No Risk: No action required Datetime: 12/31/2016 19:28 Fall Score: 0 Fall Risk Score Definition: No Risk: No action required Datetime: 12/31/2016 08:02 Fall Score: 0 Fall Risk Score Definition: No Risk: No action required Datetime: 12/30/2016 20:04 Fall Score: 0 Fall Risk Score Definition: No Risk: No action required Datetime: 12/30/2016 08:36 Fall Score: 20 Fall Risk Score Definition: No Risk: No action required Datetime: 12/29/2016 19:20 Fall Score: 0 Fall Risk Score Definition: No Risk: No action required Datetime: 12/29/2016 13:15 Fall Score: 0 Fall Risk Score Definition: No Risk: No action required Datetime: 12/29/2016 10:38 Fall Score: 0 Fall Risk Score Definition: No Risk: No action required Datetime: 12/29/2016 10:31 EGA: 33.1 Datetime: 12/27/2016 20:29 EGA: 32.6 Datetime: 12/27/2016 19:31 Fall Score: 0 Fall Risk Score Definition: No Risk: No action required
[2017-01-14] MEDS ORDERED: FERROUS SULFATE (EC) 325 MG TAB PO SCH (09:00)
[2017-01-14] MEDS ORDERED: PRENATAL VITAMIN PO SCH (09:00)
== END 2017-01-13 21:47 | disposition home or self-care (01) ==
LOC: OBT 18:04 → L-D 18:05 → OBT 21:47
PROVIDERS: ATTEND Obstetrics & Gynecology
DX: O11.3 Pre-existing hypertension with pre-eclampsia, third trimester (principal); Z3A.35 35 weeks gestation of pregnancy
CPT/HCPCS: 76815; 76818; 80053; 81001; 84560; 85025; 85384; 85610; 85730; J7120; Z7500; G0463

== ENCOUNTER 2017-01-16 10:22 | Outpatient (CLI) | payer MEDICAID ==
[~2017-01-16] VITALS: Ht 157.5 cm; Wt 81.7 kg
[2017-01-16 10:39] VITALS: BP 136/94; PULSE 107; RESP 18; Ht 157.5 cm; Wt 81.7 kg
--- NOTE | 2017-01-16 11:50 | RADRPT ---
PROCEDURE: US OB biophysical profile. CLINICAL INDICATION: Hypertension TECHNIQUE: Multiple sonographic images of the pelvis were obtained. The images were reviewed on a PACS workstation. COMPARISON: January 13, 2017 FINDINGS: There is a single live intrauterine , in cephalic presentation. A normal heart rate i s identified measuring 154 beats per minute. The amniotic fluid index is within normal limits measur ing 10.7 cm. The placenta is grade II, located anteriorly Biophysical profile: movement 2/2 tone 2/2. breathing 2/2 KALANI 2/2 Total 10/08 IMPRESSION: 1. Biophysical profile score of 8/8. 2. Single live intrauterine in cephalic presentation with normal heart rate of 154 b pm. 3. Normal amniotic fluid index of 10.7 cm. RPTAT: AAPP Physician Mamta Date Time Electronically viewed and signed by Physician Mamta on 01/16/2017 11:50 BETSY/
[2017-01-16 12:20] LABS: SCRET 0.43 mg/dl (0.44-1.00)
--- NOTE | 2017-01-16 12:50 | TRIAGE ---
OB Triage Datetime Report Generated by CPN: 01/16/2017 12:49 Datetime: 01/16/2017 11:22 Stage of : OB Triage Maternal Assessment Level of Consciousness: Fully Conscious Labor Evaluation Frequency: 1UC/HR Monitor Mode: External Duration (sec)2399: 60 Quality: Mild Resting Tone [place]: Relaxed Heart Rate FHR Baseline Rate: 150 Monitor Mode: External US Variability: Moderate 6-25 bpm Accelerations: 15X15 Decelerations: None Category: Category I Pain Assessment Pain Scale: 0 Pain Goal: 3 Vaginal Exam Membrane Status: Intact Vaginal Bleeding: None Datetime: 01/16/2017 10:36 Assessment Type: Triage Maternal Assessment Level of Consciousness: Fully Conscious DTR's/Clonus: DTRs 2+; No Clonus Headache: Denies Blurred Vision: No Respiratory Effort: Unlabored; Regular Rhythm; Equal Expansion Breath Sounds, Left: Clear and Equal Breath Sounds, Right: Clear and Equal Nausea/Vomiting: Denies RUQ Epigastric Pain: Denies Lower Extremities Edema: None Degree: None Upper Extremities Edema: None Degree: None Facial Edema: None Fall Risk Assessment History of Falling: (0) No Secondary Diagnosis: (0) No Ambulatory Aid: (0) Bedrest/Nurse Assist IV Therapy: (0) No Gait: (0) Normal/Bedrest/Immobile Mental Status: (0) Oriented to Own Ability Fall Score: 0 Fall Risk Score Definition: No Risk: No action required Datetime: 01/16/2017 10:34 Arrived By: Ambulatory Arrived From: Home Chief Complaint: PT IS HERE WITH 24 HOUR URINE COLLECTION Movement: Present Contractions: Denies/Absent Rupture of Membranes: Denies Vaginal Bleeding: None Vaginal Discharge: Denies Recent Sexual Intercouse: Denies Abdominal Trauma: Not Applicable Patient Complaints: None Time Provider Notified: 01/16/2017 11:09 Provider Notified: ESHAGHIAN Initial Plan: 24 HOUR URINE/NST/BPP Datetime: 01/16/2017 10:30 Monitor Mode: External Monitor Mode: External US Datetime: 01/13/2017 18:13 Fall Score: 0 Fall Risk Score Definition: No Risk: No action required Datetime: 01/07/2017 18:12 EGA: 34.3 Datetime: 01/07/2017 18:03 EGA: 34.3 Datetime: 01/04/2017 18:19 EGA: 34.0 Datetime: 01/04/2017 18:06 Fall Score: 0 Fall Risk Score Definition: No Risk: No action required Datetime: 01/04/2017 18:04 EGA: 34.0 Datetime: 01/02/2017 08:30 Fall Score: 0 Fall Risk Score Definition: No Risk: No action required Datetime: 01/01/2017 08:20 Fall Score: 0 Fall Risk Score Definition: No Risk: No action required Datetime: 12/31/2016 19:28 Fall Score: 0 Fall Risk Score Definition: No Risk: No action required Datetime: 12/31/2016 08:02 Fall Score: 0 Fall Risk Score Definition: No Risk: No action required Datetime: 12/30/2016 20:04 Fall Score: 0 Fall Risk Score Definition: No Risk: No action required Datetime: 12/30/2016 08:36 Fall Score: 20 Fall Risk Score Definition: No Risk: No action required Datetime: 12/29/2016 19:20 Fall Score: 0 Fall Risk Score Definition: No Risk: No action required Datetime: 12/29/2016 13:15 Fall Score: 0 Fall Risk Score Definition: No Risk: No action required Datetime: 12/29/2016 10:38 Fall Score: 0 Fall Risk Score Definition: No Risk: No action required Datetime: 12/29/2016 10:31 EGA: 33.1 Datetime: 12/27/2016 20:29 EGA: 32.6 Datetime: 12/27/2016 19:31 Fall Score: 0 Fall Risk Score Definition: No Risk: No action required
--- NOTE | 2017-01-16 13:25 | CONS ---
Date/Time of Note Date/Time of Note DATE: 01/16/17 TIME: 12:59 January 16, 2017 OB triage consult This patient is 31 years old 5 para 2 living 2 2 with 2 previous spontaneous vaginal delivery her estimated date of confinement is February 15, 2017 which makes her 35 weeks and 5 days today. She developed elevation of blood pressure and evidence of a -induced hypertension during this and is placed on labetalol 100 mg 4 times daily she is here for further evaluation. She has no complaint of headache visual disturbances or any other symptoms related to the -induced hypertension. Her vital signs are are very normal except for slightly elevated blood pressure her blood pressure upon arrival was 136/94 and then later 132/83 and then about 20 minutes ago was 127/79. However she does have a fairly sharp knee-jerk reflex no edema no complaint of headache Laboratory Tests Test 01/16/17 11:32 Urine Random Creatinine 32.88mg/dl Urine Collection Duration 24hrs Urine Total Volume 24 Hours 4500ml/24hrs Urine Creatinine Timed 24hrs Creatinine Clearance 239.0mls/min Urine Total Volume (Protein) 4500mls Urine Total Protein 24 Hour mg/24hrs Creatinine 0.43mg/dl Constitutional: other (No complaint of headache or any visual disturbance), No chills, No diaphoresis, No disoriented, No febrile, No improved, No no complaints, No poor po, No requiring IVF, No requiring O2 Eyes: No discharge, No no complaints, No other, No pain, No redness, No visual change ENT: No bleeding, No congestion, No discharge, No dysphagia, No no complaints, No other, No pain, No sore throat Respiratory: No cough, No no complaints, No other, No pain, No pleuritic pain, No shortness of breath, No sputum, No wheezing Cardiovascular: other (As I mentioned slight elevation of blood pressure), No chest pain, No edema, No lightheadedness, No no complaints, No orthopenea , No palpitations, No paroxysmal nocturnal dyspnea Gastrointestinal: other (No epigastric pain), No blood, No constipation, No decreased appetite, No diarrhea, No flatus, No nausea, No no complaints, No pain, No passing stool, No vomiting Genitourinary: other (Due to lack of any contraction pelvic examination was not performed), No bleeding, No discharge, No dysuria, No flank pain, No hematuria, No no complaints Musculoskeletal: other, No back pain, No bone/joint pain (Fairly sharp knee-jerk reflex), No neck pain, No no complaints, No restricted range of motion, No swelling Skin: other (No edema), No bruising, No erythema, No laceration, No no complaints, No pruritis, No rash, No skin lesions Endocrine: No dry skin, No no complaints, No other, No polydypsia, No polyuria , No temp intolerance Lymphatic: No adenopathy, No lymphadema, No no complaints, No other, No tender nodes Additional Comments Laboratory study her creatinine was 0.43 24 hours urine collection volume was 4500 cc 24 hour urine protein was 855 mg/dL on ultrasound study report is a single live intrauterine gestation in cephalic presentation heartbeat of 154/min the amniotic fluid index was 10.7 cm placenta was grade 2 her biophysical profile was reported 10/08. These findings were shared with Dr. Montaño her attending physician and decision was made to wait another 2-3 days and repeated the 24-hour urine protein and further monitoring. Patient was advised to rest at home and to come to triage immediately in case of severe headache visual disturbance, or low movement. Social History Smoking Status: Never smoker Exam/Review of Systems Vital Signs Vitals Vital Signs Date Time Temp Pulse Resp B/P Pulse Ox O2 Delivery O2 Flow Rate FiO2 01/16/17 10:39 98.7 107 18 136/94 98 Room Air Results Result Diagram: 01/16/17 1132 Results 24 hrs Laboratory Tests Test 01/16/17 11:32 Urine Random Creatinine 32.88 Urine Collection Duration 24 Urine Total Volume 24 Hours 4500 Urine Creatinine Timed 24 Creatinine Clearance 239.0 H Urine Total Volume (Protein) 4500 Urine Total Protein 24 Hour Creatinine 0.43 L DEEPTI SPENCE MD Jan 16, 2017 13:20
== END 2017-01-16 13:00 | disposition home or self-care (01) ==
LOC: OBT 10:22 → L-D 10:22 → OBT 13:00
PROVIDERS: ATTEND Obstetrics & Gynecology
DX: O13.3 Gestational [pregnancy-induced] hypertension without significant proteinuria, third trimester (principal); Z3A.35 35 weeks gestation of pregnancy
CPT/HCPCS: 76818; 82565; 82575; 84156

== ENCOUNTER 2017-01-21 16:27 | Inpatient (IN) | payer MEDICAID ==
[~2017-01-21] VITALS: Ht 157.5 cm; Wt 81.9 kg
[2017-01-21 16:57] VITALS: BP 149/93; PULSE 92; RESP 18; Ht 157.5 cm; Wt 81.9 kg
[2017-01-21 17:45] LABS: BASOPHILS % 0.1 % (0.0-2.0); EOSINOPHILS # 0.2 10^3/ul (0.0-0.5); EOSINOPHILS % 2.8 % (0.0-7.0); HEMATOCRIT 32.1 % (37.0-47.0); HEMOGLOBIN 10.9 g/dl (12.0-16.0); LYMPHOCYTES # 1.9 10^3/ul (0.8-2.9); LYMPHOCYTES % 28.1 % (15.0-51.0); MEAN CORPUSCULAR HEMOGLOBIN 27.3 pg (29.0-33.0); MEAN CORPUSCULAR VOLUME 80.3 fl (82.0-101.0); MEAN PLATELET VOLUME 10.5 fl (7.4-10.4); MONOCYTE # 0.5 10^3/ul (0.3-0.9); MONOCYTES % 7.4 % (0.0-11.0); NEUTROPHIL # 4.1 10^3/ul (1.6-7.5); NEUTROPHILS % 60.6 % (39.0-77.0); PLATELET COUNT 142 10^3/UL (140-415); RED CELL DISTRIBUTION WIDTH 13.5 % (11.5-14.5); WHITE BLOOD COUNT 6.8 10^3/ul (4.8-10.8)
[2017-01-21 17:50] LABS: ADD UMIC YES; UR ASCORBIC ACID NEGATIVE (NEGATIVE); UR BACTERIA FEW /HPF (NONE SEEN); UR BILIRUBIN (Dip) NEGATIVE (NEGATIVE); UR BLOOD (Dip) 1+ mg/dL (NEGATIVE); UR CLARITY CLEAR (CLEAR); UR COLOR YELLOW (YELLOW); UR GLUCOSE (Dip) 1+ mg/dL (NEGATIVE); UR KETONES (Dip) NEGATIVE (NEGATIVE); UR LEUKOCYTE ESTERASE (Dip) NEGATIVE Leu/ul (NEGATIVE); UR NITRITE (Dip) NEGATIVE (NEGATIVE); UR RBC 27 /HPF (0-5); UR SPECIFIC GRAVITY (Dip) 1.012 (1.003-1.030); UR SQUAMOUS EPITHELIAL CELL FEW /HPF (FEW); UR TOTAL PROTEIN (Dip) NEGATIVE (NEGATIVE); UR UROBILINOGEN (Dip) NEGATIVE (NEGATIVE)
[2017-01-21 18:07] LABS: ALBUMIN 3.4 g/dl (3.3-4.9); BILIRUBIN,INDIRECT 0.2 mg/dl (0-1.1); BILIRUBIN,TOTAL 0.2 mg/dl (0.2-1.3); CALCIUM 9.6 mg/dl (8.4-10.2); CREATININE 0.48 mg/dl (0.44-1.00); POTASSIUM 3.7 mmol/L (3.5-5.1); TOTAL PROTEIN 6.8 g/dl (6.1-8.1); URIC ACID 4.1 mg/dl (3.1-7.9)
--- NOTE | 2017-01-21 18:08 | RADRPT ---
PROCEDURE: Biophysical profile CLINICAL INDICATION: distress. Hypertension. TECHNIQUE: Color and yu-scale ultrasound images of an intrauterine gestation were obtained. COMPARISON: January 18, 2017 FINDINGS: A single live intrauterine gestation is identified in cephalic position with an estimated hear t rate of 171 beats per minute. The placenta is located anteriorly and has a grade II. The cervix is obscured by head shadows. No evidence of abruption identified. KALANI is 8.3 cm. movement 2/2. tone 2/2. breathing movement 2/2. Qualitative AFV 2/2 Total biophysical profile 10/08 IMPRESSION: 10/08 biophysical profile. RPTAT: AA .Mehrdad Ornelas MD, Date Time Electronically viewed and signed by .Mehrdad Ornelas MD, MD on 01/21/2017 18:08 .P/
[2017-01-21 18:12] LABS: INR 0.99; PROTIME 13.1 Sec (12.2-14.2)
--- NOTE | 2017-01-21 18:40 | HP ---
Date/Time of Note Date/Time of Note DATE: 01/21/17 TIME: 18:39 OB - History Hx of Present Free Text/Dictation 36+wks GA with preeclmpasia : 5 Para: 2 Care: Good Care Ultrasounds: Normal mid trimester US Obstetrical Complications: Pre-eclampsia Past Family/Social History * Past Medical, Surgical, Family and Obstetric Histories reviewed from chart. OB Admission Exam Vital Signs Vital Signs Vital Signs Date Time Temp Pulse Resp B/P Pulse Ox O2 Delivery O2 Flow Rate FiO2 01/21/17 16:57 98.5 92 18 149/93 98 Room Air Physical Exam HEENT: WNL Abdomen: WNL Membranes: Intact Heart Rate: 140's Accelerations: Accelerations Present Decelerations: No Decelerations Varibility: Moderate Contractions on Admission: None Last 72 hours Lab Results CBC & BMP 01/21/17 16:35 Liver Function Test 01/21/17 16:35 Alanine Aminotransferase (ALT/SGPT) 27 Albumin 3.4 Alkaline Phosphatase 94 Aspartate Amino Transf (AST/SGOT) 15 Direct Bilirubin 0.00 Total Protein 6.8 OB Assessment/Plan Reason for admission: observation Plan: Expectant Management Other plan: Plt 142 --->Repeat PIH panel tomorrow morning --->pIH panel --->prenatalogy consult KATIE WYNN M.D. Jan 21, 2017 18:40
--- NOTE | 2017-01-21 18:42 | TRIAGE ---
OB Triage Datetime Report Generated by CPN: 01/21/2017 18:42 Datetime: 01/21/2017 16:53 Assessment Type: Admission Assessment Maternal Assessment Level of Consciousness: Fully Conscious DTR's/Clonus: DTRs 2+; No Clonus Headache: Denies Blurred Vision: No Respiratory Effort: Unlabored; Regular Rhythm; Equal Expansion Breath Sounds, Left: Clear and Equal Breath Sounds, Right: Clear and Equal Nausea/Vomiting: Denies RUQ Epigastric Pain: Denies Lower Extremities Edema: None Degree: None Upper Extremities Edema: None Degree: None Facial Edema: None Fall Risk Assessment History of Falling: (0) No Secondary Diagnosis: (0) No Ambulatory Aid: (0) Bedrest/Nurse Assist IV Therapy: (0) No Gait: (0) Normal/Bedrest/Immobile Mental Status: (0) Oriented to Own Ability Fall Score: 0 Fall Risk Score Definition: No Risk: No action required Datetime: 01/21/2017 16:52 Time of Arrival: 01/21/2017 16:21 EGA: 36.3 Arrived By: Ambulatory Arrived From: Home Chief Complaint: pt here for HBP Movement: Present Contractions: Denies/Absent Rupture of Membranes: Denies Vaginal Bleeding: None Vaginal Discharge: Denies Recent Sexual Intercouse: Denies Abdominal Trauma: Not Applicable Patient Complaints: None Time Provider Notified: 01/21/2017 17:02 Provider Notified: ESHAGHIAN Initial Plan: BPP/PIH PANEL Datetime: 01/21/2017 16:50 Labor Evaluation Monitor Mode: External Heart Rate Monitor Mode: External US Datetime: 01/18/2017 12:00 Fall Score: 0 Fall Risk Score Definition: No Risk: No action required Datetime: 01/18/2017 11:53 EGA: 36.0 Datetime: 01/16/2017 10:36 Fall Score: 0 Fall Risk Score Definition: No Risk: No action required Datetime: 01/16/2017 10:34 EGA: 35.5 Datetime: 01/13/2017 18:13 Fall Score: 0 Fall Risk Score Definition: No Risk: No action required Datetime: 01/07/2017 18:12 EGA: 34.3 Datetime: 01/07/2017 18:03 EGA: 34.3 Datetime: 01/04/2017 18:19 EGA: 34.0 Datetime: 01/04/2017 18:06 Fall Score: 0 Fall Risk Score Definition: No Risk: No action required Datetime: 01/04/2017 18:04 EGA: 34.0 Datetime: 01/02/2017 08:30 Fall Score: 0 Fall Risk Score Definition: No Risk: No action required Datetime: 01/01/2017 08:20 Fall Score: 0 Fall Risk Score Definition: No Risk: No action required Datetime: 12/31/2016 19:28 Fall Score: 0 Fall Risk Score Definition: No Risk: No action required Datetime: 12/31/2016 08:02 Fall Score: 0 Fall Risk Score Definition: No Risk: No action required Datetime: 12/30/2016 20:04 Fall Score: 0 Fall Risk Score Definition: No Risk: No action required Datetime: 12/30/2016 08:36 Fall Score: 20 Fall Risk Score Definition: No Risk: No action required Datetime: 12/29/2016 19:20 Fall Score: 0 Fall Risk Score Definition: No Risk: No action required Datetime: 12/29/2016 13:15 Fall Score: 0 Fall Risk Score Definition: No Risk: No action required Datetime: 12/29/2016 10:38 Fall Score: 0 Fall Risk Score Definition: No Risk: No action required Datetime: 12/29/2016 10:31 EGA: 33.1 Datetime: 12/27/2016 20:29 EGA: 32.6 Datetime: 12/27/2016 19:31 Fall Score: 0 Fall Risk Score Definition: No Risk: No action required
[2017-01-22] MEDS ORDERED: LABETALOL 100 MG TAB PO ONE (09:00)
--- NOTE | 2017-01-22 18:08 | QN ---
Documentation Comment Progress note Patient was seen and evaluated awake alert oriented 3 denies any headache nausea vomiting shortness of breath visual change epigastric pain Vital signs blood pressure 143/93 temperature 98.5 pulse 18 HEENT within normal Lungs CTA bilateral CVS positive S1-S2 regular rhythm Abdomen gravid nontender negative CVA bilateral Extremity negative edema no calf tenderness Assessment interim at 36 weeks and 4 days gestational age preeclampsia without severe features Plan Per perinatologist continue in-house monitoring and deliver at 37 weeks gestational age Consider delivery if severe features are present Patient is signed out to labor us until Friday JAMARI MELTON MD Jan 22, 2017 18:08
[2017-01-22 19:28] LABS: SCRET 0.48 mg/dl (0.44-1.00)
--- NOTE | 2017-01-23 01:06 | CONS ---
DATE OF ADMISSION: 01/21/2017 DATE OF CONSULTATION: 01/22/2017 HISTORY OF PRESENT ILLNESS: The patient is currently at 36 weeks and 4 days and was sent from clin c secondary to elevated blood pressure. She has history of prior preeclampsia. She denies headache, chest pain, shortness of breath, or right upper quadrant abdominal pain. PHYSICAL EXAMINATION: VITAL SIGNS: Blood pressure is currently 134/86. Physical examination deferred. LABORATORIES: Normal. heart tones reassuring. Contractions occasionally. ASSESSMENT: 1. Intrauterine at 36 weeks and 4 days with mild preeclampsia given elevated blood pressu res and previous 24-hour urine proteins have been about 800 mg, the current 24-hour urine for protei n is pending. 2. heart tone is reassuring. RECOMMENDATIONS: In-house management until delivery. Delivery at 37 weeks if she remains at the mild preeclamptic area. Otherwise, if there is any evide nce of severe preeclampsia given labs, symptoms and/or blood pressures, then delivery is recommended at the time of diagnosis. Otherwise, delivery at 37 with in house management and continuous heart tone monitoring. Dictated By: WALTER VALLADARES/KADI Conf#: [id number] DID#: [id number]
[2017-01-23] MEDS: LABETALOL 100 MG TAB PO SCH ×2 (09:10→21:30)
--- NOTE | 2017-01-23 18:00 | PN ---
Date/Time of Note Date/Time of Note DATE: 01/23/17 TIME: 17:57 OB Subjective Subjective Subjective January 23, 2017 Hospital visit This patient is 31 years old 5 para 2 2 with estimated date of confinement of February 15, 2017 which makes her now about 36 weeks and 5 days. She came to the hospital on 01/21/2017 due to elevated blood pressure 150/92 with a diagnosis of preeclampsia she was placed on labetalol 100 mg twice daily. Her 24 hours urine protein came back 398, Due to elevated blood pressure and evidence of preeclampsia and she was kept in the hospital Received betamethasone twice 12 hours apart. Laboratory Tests Test 01/22/17 18:45 Urine Random Creatinine 44.95mg/dl Urine Collection Duration 24hrs Urine Total Volume 24 Hours 2425ml/24hrs Urine Creatinine Timed 24hrs Creatinine Clearance 157.7mls/min Urine Total Volume (Protein) 2425mls Urine Total Protein 24 Hour 388.0mg/24hrs Current Medications Medications (Trade) Dose Ordered Sig/Tal Route PRN Reason Start Time Stop Time Status Last Admin Dose Admin Labetalol HCl (Normodyne) 100 mg ONCE ONCE PO 01/22/17 09:00 01/22/17 09:01 DC 01/22/17 10:12 Labetalol HCl (Normodyne) 100 mg BID PO 01/23/17 09:00 01/23/17 09:10 Today she is fairly comfortable her ,. blood pressure somewhat lower at around 139/92 abdomen is soft no contraction heart tracing is normal with good variability and accelerations no decelerations knee-jerk reflex are sharp about 3+ no edema. With these finding she is planned for induction of labor 2 days later at 37 weeks gestation. End of dictation DEEPTI SPENCE MD Jan 23, 2017 18:00
[2017-01-24] MEDS: LABETALOL 100 MG TAB PO SCH ×2 (08:58→21:13)
--- NOTE | 2017-01-24 18:49 | QN ---
Documentation Comment 36+wks GA with preeclampsia NO Headache No blurry vision no epigastric pain +FM NO VB NO LOF NST reassuring Tooc No CTXs --->Transfer to L&D to deliver at 37 wks KATIE WYNN M.D. Jan 24, 2017 18:49
[2017-01-25] MEDS: LABETALOL 100 MG TAB PO SCH ×2 (09:11→22:23)
--- NOTE | 2017-01-25 09:59 | PN ---
Date/Time of Note Date/Time of Note DATE: 01/25/17 TIME: 09:55 OB Subjective Subjective Subjective Patient with preeclampsia. Denies DEJESUS, visual changes, RUQ pain. Discussed induction today vs. Friday. Patient prefers to be induced today. Denies LOF, VB, UCs. +FM. OB Objective Objective Objective Gen: NAD Abd: gravid, NT SVE: 3/50/-2, vtx OB Assessment/Plan Reason for admission: induction of labor Other Assessment: Continue to monitor symptoms, BPs Plan: Induction Induction Method: per Pitocin Protocol Other plan: Magnesium sulfate RALF Sampson Jan 25, 2017 09:59
[2017-01-25] MEDS ORDERED: CARBOPROST 250 MCG INJ IM PRN (11:00)
[2017-01-25] MEDS ORDERED: METHYLERGONOVINE 0.2 MG INJ IM PRN (11:00)
[2017-01-25] MEDS ORDERED: AMPICILLIN 2 GM/NS (PMX) 100 ML IV ONE (11:00)
[2017-01-25] MEDS ORDERED: MISOPROSTOL 200 MCG TAB PR PRN (11:00)
[2017-01-25] MEDS ORDERED: OXYTOCIN 30 UNITS/LR 500 ML IV SCH ×2 (11:00)
[2017-01-25] MEDS ORDERED: BUTORPHANOL 2 MG INJ IV PRN (11:00)
[2017-01-25] MEDS ORDERED: LIDOCAINE 1% (MPF) 30 ML INJ INJ PRN (11:00)
[2017-01-25] MEDS ORDERED: OXYTOCIN 30 UNITS/LR 500 ML IV PRN (11:00)
[2017-01-25] MEDS ORDERED: LACTATED RINGER'S 1,000 ML IV PRN (13:00)
[2017-01-25] MEDS: AMPICILLIN 1 GM/NS (PMX) 50 ML IV SCH ×3 (15:00→22:52)
[2017-01-25 15:06] LABS: BASOPHILS % 0.3 % (0.0-2.0); EOSINOPHILS # 0.1 10^3/ul (0.0-0.5); EOSINOPHILS % 0.9 % (0.0-7.0); HEMATOCRIT 34.4 % (37.0-47.0); HEMOGLOBIN 11.7 g/dl (12.0-16.0); LYMPHOCYTES # 1.6 10^3/ul (0.8-2.9); LYMPHOCYTES % 18.4 % (15.0-51.0); MEAN CORPUSCULAR HEMOGLOBIN 27.5 pg (29.0-33.0); MEAN CORPUSCULAR VOLUME 80.9 fl (82.0-101.0); MEAN PLATELET VOLUME 10.4 fl (7.4-10.4); MONOCYTE # 0.5 10^3/ul (0.3-0.9); MONOCYTES % 5.7 % (0.0-11.0); NEUTROPHIL # 6.4 10^3/ul (1.6-7.5); NEUTROPHILS % 73.2 % (39.0-77.0); PLATELET COUNT 159 10^3/UL (140-415); RED BLOOD COUNT 4.25 10^6/ul (4.20-5.40); WHITE BLOOD COUNT 8.8 10^3/ul (4.8-10.8)
[2017-01-25] MEDS: LACTATED RINGER'S 1,000 ML IV SCH ×2 (15:11→22:24)
[2017-01-25 15:28] LABS: INR 0.91; PARTIAL THROMBOPLASTIN TIME 28.1 Sec (25.0-35.0); PROTIME 12.2 Sec (12.2-14.2)
[2017-01-26] MEDS ORDERED: FENTAnyl 2MCG/ML-ROPIV 0.2% 100 ML ONE (00:16)
[2017-01-26] MEDS ORDERED: EPHEDrine SULFATE 50 MG/5 ML SYG IV PRN (00:30)
[2017-01-26] MEDS ORDERED: ONDANSETRON 4 MG INJ IV PRN (00:30)
[2017-01-26] MEDS ORDERED: OXYCODONE/ACETAMINOPHEN (5/325) TAB PO PRN (00:30)
[2017-01-26] MEDS ORDERED: DIPHENHYDRAMINE 50 MG INJ IV PRN (00:30)
[2017-01-26] MEDS ORDERED: IBUPROFEN 600 MG TAB PO PRN (00:30)
[2017-01-26] MEDS ORDERED: NALOXONE (0.4 MG/ML) INJ IV PRN (00:30)
[2017-01-26] MEDS: FENTAnyl 2MCG/ML-ROPIV 0.2% 100 ML BAG EPI SCH ×3 (00:50→17:38)
[2017-01-26] MEDS: AMPICILLIN 1 GM/NS (PMX) 50 ML IV SCH ×5 (03:17→20:12)
[2017-01-26] MEDS: LACTATED RINGER'S 1,000 ML IV SCH ×3 (03:19→16:48)
[2017-01-26] MEDS ORDERED: DEXTROSE 5%-LR 1,000 ML IV PRN (08:00)
[2017-01-26] MEDS: LABETALOL 100 MG TAB PO SCH ×2 (09:02→20:27)
[2017-01-26] MEDS: OXYTOCIN 30 UNITS/LR 500 ML IV SCH ×2 (18:21→20:26)
--- NOTE | 2017-01-26 19:05 | LDN ---
Date/Time of Note Date/Time of Note DATE: 01/26/17 TIME: 18:48 Delivery Summary induced labor for mild preeclampsia at 37w GDM Weeks of Gestation 37w1d Placenta Delivered: Spontaneously Meconium: none Episiotomy: No Indication for episiotomy none Perineal laceration: 0 Anesthesia type: Epidural Estimated blood loss: 100 Sponge & Needle done & correct: Yes All needle counts correct: Yes Any foreign bodies felt in the: No Problems: Delivery Information Sex Infant Sex: female Apgars 1 Minute: 9 5 Minute: 9 10 Minute: Suctioning Nose & mouth suctioned at cara: Yes Delee suction performed: No Umbilical Cord Umbilical cord with: 3 Vessels Cord presentations: no nuchal cord Cord Blood was obtained: Yes Mother & Baby Disposition Disposition Mom & Baby to Maternity; Good: Yes Mom transferred to: Other Baby to NICU: No () STEVE BEE MD Jan 26, 2017 19:03
[2017-01-26 20:50] VITALS: BP 129/73; PULSE 84; RESP 18
[2017-01-26] MEDS ORDERED: OXYCODONE/ASPIRIN (4.88/325) TAB PO PRN ×2 (23:00)
[2017-01-26] MEDS ORDERED: ZOLPIDEM 5 MG TAB PO PRN (23:00)
[2017-01-26] MEDS ORDERED: OXYTOCIN 30 UNITS/LR 500 ML IV PRN (23:00)
[2017-01-26] MEDS ORDERED: METHYLERGONOVINE 0.2 MG INJ IM PRN (23:00)
[2017-01-26] MEDS ORDERED: LANOLIN 7 GM TUBE TOP PRN (23:00)
[2017-01-26] MEDS ORDERED: MISOPROSTOL 200 MCG TAB PR PRN (23:00)
[2017-01-26] MEDS ORDERED: CARBOPROST 250 MCG INJ IM PRN (23:00)
[2017-01-26] MEDS ORDERED: WITCH HAZEL/GLYCERIN PAD PR PRN (23:00)
[2017-01-26] MEDS ORDERED: BENZOCAINE 20% 56 ML SPRAY TOP PRN (23:00)
[2017-01-27] MEDS: IBUPROFEN 600 MG TAB PO SCH ×4 (00:02→18:15)
[2017-01-27 00:03] VITALS: BP 123/68; PULSE 84; RESP 18
[2017-01-27 04:31] VITALS: BP 119/72; PULSE 83; RESP 18
[2017-01-27 08:10] VITALS: BP 144/85; PULSE 86; RESP 20
[2017-01-27] MEDS: SENNA/DOCUSATE NA (8.6MG/50MG) TAB PO SCH ×2 (09:09→21:26)
[2017-01-27 11:14] LABS: BASOPHILS % 0.3 % (0.0-2.0); EOSINOPHILS # 0.1 10^3/ul (0.0-0.5); HEMATOCRIT 28.9 % (37.0-47.0); HEMOGLOBIN 9.7 g/dl (12.0-16.0); LYMPHOCYTES # 1.7 10^3/ul (0.8-2.9); LYMPHOCYTES % 19.8 % (15.0-51.0); MEAN CORPUSCULAR HEMOGLOBIN 27.4 pg (29.0-33.0); MEAN CORPUSCULAR HGB CONC 33.6 g/dl (32.0-37.0); MEAN CORPUSCULAR VOLUME 81.6 fl (82.0-101.0); MEAN PLATELET VOLUME 10.4 fl (7.4-10.4); MONOCYTE # 0.5 10^3/ul (0.3-0.9); MONOCYTES % 5.3 % (0.0-11.0); NEUTROPHIL # 6.3 10^3/ul (1.6-7.5); NEUTROPHILS % 72.7 % (39.0-77.0); PLATELET COUNT 144 10^3/UL (140-415); RED BLOOD COUNT 3.54 10^6/ul (4.20-5.40); RED CELL DISTRIBUTION WIDTH 13.9 % (11.5-14.5); WHITE BLOOD COUNT 8.7 10^3/ul (4.8-10.8)
[2017-01-27 16:00] VITALS: BP 127/68; PULSE 68; RESP 20
--- NOTE | 2017-01-27 18:31 | QN ---
Documentation Comment progress note ppd 1 patient seen and evaluated no complaints no headache, n/v, sob, visual changes, epigastric pain vs stable, afebrile abd soft, nt, no epigastric tenderness extremity no edema, no calf tenderness a/ sp vaginal delivery ppd 1 stable afebrile p/ discharge home tomorrow with strict preeclamptic precautions JAMARI MELTON MD Jan 27, 2017 18:31
--- NOTE | 2017-01-27 18:33 | PD.PPDC ---
WAITER/WAITRESS HEAD Discharge Instruction Diagnosis Final Diagnosis: iup at term; preeclampsia Condition Patient Condition: Fair Diet Diet: Resume Regular Diet Activity/Restrictions Activity: Normal Activity May Shower Restrictions: No Exercising No Lifting No Driving No Sexual Activity Nothing in the Vagina No [place] No Tampons, douche Follow-up Follow-up with Physician: 2, Week/Weeks Return to clinic for PROFESSOR OF MATHEMATICS Instructions: Fever greater than 101 Chills Worsening abdominal pain Excessive Vaginal Bleeding More than 2 pads per hour Unable to tolerate diet OB Instructions: Breast Tenderness Depression Blurried Vision Headache Surgical Instructions: Incisional Drainage Incisional Redness Comment: strict preeclamptic precautions home blood pressure monitoring JAMARI MELTON MD Jan 27, 2017 18:33
--- NOTE | 2017-01-27 18:35 | DS ---
Date/Time of Note Date/Time of Note DATE: 01/27/17 TIME: 18:34 Obstetrical Discharge Record Final Diagnosis Final Diagnosis: Term delivered Other Final Diagnosis iup at 37 wks ga, preeclampsia Vaginal Delivery Obstetrical Delivery: Spontaneous Complications Preg induced Hypertension Augmentation: No Induction: Yes Condition on Discharge Physical Assessment Last Vitals: STABLE, AFEBRILE Voiding: Yes Bowel Movement: Yes Breast: Soft, non-tender, Filling Fundus: Firm Abdomen and Incision: SOFT, NT, NO EPIGASTRIC TENDERNESS Calf Tenderness: No Patient Condition: JAMARI Barron MD Jan 27, 2017 18:35
[2017-01-27 20:00] VITALS: BP 128/81; PULSE 77; RESP 19
[2017-01-28] MEDS: IBUPROFEN 600 MG TAB PO SCH ×3 (00:11→11:28)
[2017-01-28 04:00] VITALS: BP 129/78; PULSE 70; RESP 17
[2017-01-28] MEDS ORDERED: INFLUENZA VIRUS VACCINE 0.5 ML (DISPENSING) IM* ONE (05:30)
[2017-01-28 07:45] VITALS: BP 128/86; PULSE 76; RESP 18
[2017-01-28] MEDS ORDERED: DIPHTH/TET/ACEL PERTUSS (ADULT) 0.5 ML VIAL IM* ONE (09:00)
[2017-01-28] MEDS: SENNA/DOCUSATE NA (8.6MG/50MG) TAB PO SCH (09:02)
== END 2017-01-28 15:03 | disposition home or self-care (01) | DRG 775 ==
LOC: OBT 16:27 → L-D 16:28 → OBT 18:35 → OBG 01-22 15:29 → L-D 01-25 14:00 → PP1 01-26 20:46
PROVIDERS: ADMIT Obstetrics & Gynecology; ATTEND Obstetrics & Gynecology
PROC: 10E0XZZ Delivery of Products of Conception, External Approach (ICD-10-PCS; principal; 2017-01-26)
PROC: 3E033VJ Introduction of Other Hormone into Peripheral Vein, Percutaneous Approach (ICD-10-PCS; 2017-01-26)
DX: O14.04 Mild to moderate pre-eclampsia, complicating childbirth (principal); E66.9 Obesity, unspecified; O99.214 Obesity complicating childbirth; Z68.33 Body mass index [BMI] 33.0-33.9, adult; O13.4 Gestational [pregnancy-induced] hypertension without significant proteinuria, complicating childbirth; Z37.0 Single live birth; Z3A.37 37 weeks gestation of pregnancy
CPT/HCPCS: 36415; 62319; 76818; 80053; 81001; 82575; 84156; 84560; 85025; 85049; 85384; 85610; 85730; 86592; 86900; 86901; 87340; 90686; 90715; G0463; J0290; J2590; J3010; J7120